=== PATIENT | female | born 1990 | race Caucasian/White ===

== ENCOUNTER 2020-10-02 08:44 | Outpatient (CLI) | payer BC, SELFPAY ==
[2020-10-03 14:03] LABS: COVID-19 RT-PCR UVMMC Result Negative (Negative)
== END 2020-10-02 08:45 | disposition home or self-care (01) ==
LOC: LBO 08:46
PROVIDERS: Visit Provider Family Medicine
DX: Z20.822 Contact with and (suspected) exposure to COVID-19 (principal)
CPT/HCPCS: U0003